=== PATIENT | female | born 1960 | race Caucasian/White ===

== ENCOUNTER 2017-04-26 06:29 | Day surgery (SDC) | payer OTHER ==
[~2017-04-26] VITALS: Ht 162.6 cm; Wt 81.8 kg
[~2017-04-26 06:29] MED LIST: TRANSDERM-SCOP1.5 MG TD; [UNRECOGNIZED DRUG - OTHER] VG
[2017-04-26 07:35] LABS: HEMATOCRIT 42.8 % (36.0-48.0); HEMOGLOBIN 14.6 g/dL (12-16); MCH 29.4 pg (26.0-34.0); MCHC 34.1 g/dL (31.0-37.0); MCV 86.3 fL (80.0-100.0); MEAN PLATELET VOLUME 10.6 fL (7.4-10.4); RBC 4.96 10x6/uL (4.00-5.40); WBC 5.8 10x3/uL (4.8-10.8)
[2017-04-26 08:25] VITALS: BP 123/77; Ht 162.6 cm; Wt 81.8 kg
--- NOTE | 2017-04-26 11:09 | NUR ---
1030 IV DC WITH CATHER TIP INTACT
--- NOTE | 2017-04-26 13:00 | HP ---
PATIENT: KG LEVIN MEDICAL RECORD: [id number] ACCOUNT: [id number] LOCATION:[facility] : 62 ADMISSION DATE: 04/26/17 HISTORY AND PHYSICAL EXAMINATION CHIEF COMPLAINT: History of colon polyps. HISTORY OF PRESENT ILLNESS: The patient has a family history of colon cancer. She had 1.1 cm pedunculated cecal polyp that I removed last year by a snare polypectomy. This was a cecal polyp and was adenomatous. She is here for surveillance colonoscopy. HOME MEDICINES: None. ALLERGIES: KEFLEX AND TORADOL. SOCIAL HISTORY: Nonsmoker. PAST MEDICAL AND SURGICAL HISTORY: Hysterectomy, melanoma removal, gastroesophageal reflux. REVIEW OF SYSTEMS: Negative for CVA or seizures. Negative for diabetes or thyroid problems. PHYSICAL EXAMINATION: GENERAL: The patient does not appear acutely ill. She does not appear chronically ill. VITAL SIGNS: Reviewed. HEAD: External ears appear normal. EYES: Extraocular movements are intact. NECK: Trachea is midline. CHEST: No intercostal retractions. PULMONARY: Nonlabored. IMPRESSION: History of colon polyps for surveillance colonoscopy. PLAN: Will be surveillance colonoscopy. TRANSINT:[id number] Voice Confirmation ID: [id number] DOCUMENT ID: [id number] NOEMI ANGUIANO MD at 1300 CC: NOEMI CARTER DO [id number] DICTATION DATE: 04/26/17924 DRIVER'S EDUCATION INSTRUCTOR: 04/26/[address] [facility] 04/26/17 [id number] [place] [address]
--- NOTE | 2017-04-26 13:00 | OP ---
PATIENT NAME: KG LEVIN MEDICAL RECORD: [id number] :62 LOCATION:[facility] ADMISSION DATE: SURGEON: NOEMI ANGUIANO MD DATE OF OPERATION: 04/26/2017 PREOPERATIVE DIAGNOSES: 1. History of colon polyps. 2. Family history of colon cancer. POSTOPERATIVE DIAGNOSES: 1. History of colon polyps. 2. Family history of colon cancer. 3. One sessile polyp, 6 mm x 7 mm. PROCEDURES: 1. Total colonoscopy to cecum. 2. Hot biopsy forceps polypectomy times 1. SURGEON: Noemi Anguiano MD [employer]: None. BLOOD LOSS: Minimal. ANESTHESIA: IV sedation. COMPLICATIONS: None. The risks, possible complications, and alternatives to the procedure were explained to the patient. She elects to proceed. The discussion specifically included, but was not limited to, bleeding requiring an emergency reoperation, infection, and intestinal injury. OPERATIVE COURSE: The patient was conveyed to the endoscopy suite electively on 04/26/2017. IV sedation was induced by the anesthesia staff. The patient was placed in the Lubin position. A digital rectal examination was performed. A colonoscope was inserted through the anus. It was easily advanced to the cecum. The prep was excellent. I intubated the ileum. I used direct imaging as well as narrow band imaging to examine the arboleda of the colon and rectum. I dragged the folds. The pullback was greater than 18-minute pullback. One sessile polyp was noted and it was removed in its entirety utilizing a hot biopsy forceps polypectomy technique. A retroflexed view was obtained in the rectum. I then unretroflexed the scope and removed it under direct vision. I will plan for her next surveillance colonoscopy to take place in 3 years. TRANSINT:[id number] Voice Confirmation ID: [id number] DOCUMENT ID: [id number] OPERATIVE REPORT [id number] GREGORYTESSA SUNGNOEMI UNDERWOOD MD at 1300 CC: NOEMI CARTER DO [id number] DICTATION DATE: 04/26/17 1002 MANAGER PORT: 04/26/17 1016 [facility] 04/26/17 [place] [address]
== END 2017-04-26 11:05 | disposition home or self-care (01) ==
LOC: D.OPS 06:29 → D.PAN 08:00 → D.OPS 08:00 → D.PAN 09:00 → D.OPS 11:05
PROVIDERS: Anesthesiology
DX: Z12.11 Encounter for screening for malignant neoplasm of colon (principal); D12.4 Benign neoplasm of descending colon; Z86.010 Personal history of colon polyps; Z80.0 Family history of malignant neoplasm of digestive organs; K21.9 Gastro-esophageal reflux disease without esophagitis; Z88.8 Allergy status to other drugs, medicaments and biological substances; Z01.812 Encounter for preprocedural laboratory examination